=== PATIENT | female | born 1965 | race Caucasian/White ===

== ENCOUNTER 2018-10-01 18:37 | Emergency (ER) | payer OTHER ==
[~2018-10-01] VITALS: Ht 170.2 cm; Wt 75.1 kg
[2018-10-01 19:02] VITALS: BP 112/76
== END 2018-10-01 20:36 | disposition home or self-care (01) ==
LOC: ED 20:00
DX: L03.317 Cellulitis of buttock (principal); S30.860A Insect bite (nonvenomous) of lower back and pelvis, initial encounter; L03.90 Cellulitis, unspecified; W57.XXXA Bitten or stung by nonvenomous insect and other nonvenomous arthropods, initial encounter; Y93.89 Activity, other specified; Y92.89 Other specified places as the place of occurrence of the external cause; Y99.8 Other external cause status
CPT/HCPCS: 99283; Q0163

== ENCOUNTER 2020-09-20 00:16 | Emergency (ER) | payer OTHER ==
[~2020-09-20] VITALS: Ht 170.2 cm; Wt 74.3 kg
[~2020-09-20 00:16] MED LIST: MULT-658 PO
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
[2020-09-20] MEDS ORDERED: DIAZEPAM 5 MG TABLET PO ONE (01:30)
[2020-09-20] MEDS ORDERED: LIDODERM 5% PATCH TD ONE ×2 (01:30→01:34)
[2020-09-20] MEDS ORDERED: DIAZEPAM 5 MG TABLET ONE (01:33)
--- NOTE | 2020-09-20 02:05 | NUR ---
BEDSIDE REPORT GIVEN TO OSKAR LAYNE
--- NOTE | 2020-09-20 02:58 | NUR ---
Patient is resting comfortably in bed. Bed in lowest, rails engaged, call light on lap. Vital Signs within normal limits. WCTM.
[2020-09-20] MEDS ORDERED: KETOROLAC 30 MG/1 ML IM ONE (03:30)
[2020-09-20] MEDS ORDERED: KETOROLAC 30 MG/1 ML ONE (03:42)
[2020-09-20 04:33] VITALS: BP 110/73
--- NOTE | 2020-09-20 05:01 | NUR ---
Patient/Caregiver given discharge instructions and they have confirmed that they understand the instructions. Patient ambulatory with steady gait. NAD, all questions answered appropriately, denies additional needs at this time. No personal belongings left in room after discharge. family with pt for safe drive home and dc. Pt stating at end of dc stating she only had 1 cocktail tongiht and was upset about substance abuse diagnosis which was taken off. pt did not seem intoxicated when this nurse took over prior nurse. pt stating she could show proof through blood test or breathylizer.
== END 2020-09-20 05:04 | disposition home or self-care (01) ==
LOC: ED 05:00
DX: S09.90XA Unspecified injury of head, initial encounter (principal); M47.812 Spondylosis without myelopathy or radiculopathy, cervical region; Y04.8XXA Assault by other bodily force, initial encounter; Y93.89 Activity, other specified; Y92.009 Unspecified place in unspecified non-institutional (private) residence as the place of occurrence of the external cause; Y99.8 Other external cause status
CPT/HCPCS: 70450; 72125; 96372; 99285; J1885